=== PATIENT | male | born 1970 | race Caucasian/White ===

== ENCOUNTER 2021-01-02 07:00 | Day surgery (SDC) | payer BC ==
[~2021-01-02 07:00] MED LIST: Midazolam 1 MG/ML 2 ML SDV ONE; Propofol 200 MG/20 ML SDV ONE; fentaNYL 100 MCG/2 ML SDV ONE
[2021-01-02] MEDS ORDERED: Dextrose 5%-Lactated Ringers 1,000 ML IV SCH (08:00)
[2021-01-02] MEDS ORDERED: Dexamethasone 4 MG/ML SDV ONE (08:09)
[2021-01-02] MEDS ORDERED: Ondansetron 4 MG/2 ML SDV ONE (08:09)
--- NOTE | 2021-01-21 10:20 | OR ---
DATE OF PROCEDURE: 01/02/2021 SURGEON: Luigi Agosto MD PREOPERATIVE DIAGNOSIS: Family history of colon carcinoma. POSTOPERATIVE DIAGNOSIS: Normal colonoscopic examination. OPERATIVE PROCEDURE: Flexible colonoscopy. ANESTHESIA: IV sedation. INDICATIONS FOR PROCEDURE: This is a 50-year-old male presenting for initial colonoscopy. Has had a history of his sister having colon carcinoma. Otherwise, he has had no history of previous polyps or other colonic pathology. Plan is proceed with a colonoscopy with biopsies and a polypectomy as indicated. Potential risks including bleeding and perforation were discussed, and the patient wishes to proceed. DETAILS OF PROCEDURE: The patient was taken to the operating room, placed in a left lateral decubitus position. IV sedation was administered, after which the initial digital rectal examination was performed and was unremarkable. Colonoscope was then passed into the rectum with retroflexion revealing uncomplicated hemorrhoidal columns. Scope was eventually passed to the level of the cecum. The prep was fairly good. Only a small amount of liquid stool was present to that level. The patient was noted to have no areas of polyps or other signs of neoplasia. Otherwise, no diverticula or areas of colitis. The scope was withdrawn. The above findings reconfirmed, and the procedure then concluded. The patient was taken to the recovery room in satisfactory condition. Given the immediate family history of colon carcinoma, the patient should undergo a followup colonoscopy in 5 years. Luigi Agosto MD /[id number]
== END 2021-01-02 10:00 | disposition home or self-care (01) ==
LOC: JP.SDS 07:00
PROVIDERS: ATTEND Surgery
DX: Z12.11 Encounter for screening for malignant neoplasm of colon (principal); K64.9 Unspecified hemorrhoids; E66.9 Obesity, unspecified; K21.9 Gastro-esophageal reflux disease without esophagitis; Z80.0 Family history of malignant neoplasm of digestive organs
CPT/HCPCS: 45378; J1100; J2250; J2405; J2704; J3010; J7121